=== PATIENT | female | born 1995 | race Caucasian/White ===

== ENCOUNTER 2017-03-11 09:38 | Emergency (ER) | payer OTHER | END 2017-03-11 11:36 | disposition home or self-care (01) | LOC: E/R 09:38 | DX: J02.9 Acute pharyngitis, unspecified (principal); R09.89 Other specified symptoms and signs involving the circulatory and respiratory systems; R50.9 Fever, unspecified; R05 Cough | CPT/HCPCS: 99284; Z7502 ==